=== PATIENT | male | born 1975 | race Two or more races ===

== ENCOUNTER 2024-09-09 05:26 | Emergency (ER) | payer MEDICAID, SELFPAY ==
[2024-09-09 05:28] VITALS: BMI 34.0
[2024-09-09 05:30] VITALS: BP 128/88; PULSE 68; RESP 18; TEMP 36.4; O2SAT 98
--- NOTE | 2024-09-09 05:30 | PC.NURSE ---
MAIN ED ROOM REQUESTED AT THIS TIME.
--- NOTE | 2024-09-09 05:30 | EKG_ITS ---
[facility] Test Date: 2024-09-09 Pat Name: JACK DREW Department: Room: - Gender: Male Health And Safety Specialist: : 1975 Requested By: ED Temporary Provider Order Number: [id number] Reading MD: ED Temporary Provider Measurements Intervals [place] Rate: 67 P: 54 IL: 152 QRS: 25 QRSD: 98 T: 45 QT: 408 QTc: 431 Interpretive Statements SINUS RHYTHM POSSIBLE RIGHT VENTRICULAR CONDUCTION DELAY [RSR (QR) IN V1/V2] PROBABLE SEPTAL MYOCARDIAL INFARCTION , POSSIBLY ACUTE [35 ms Q WAVE IN V1/V2] ST ELEVATION, CONSIDER ANTERIOR INJURY [MARKED ST ELEVATION W/O NORMALLY INFLECTED T-WAVE IN V2-V5] ACUTE OK No previous ECG available for comparison /store/S0/[id number]/ecg/[id number].pdf
--- NOTE | 2024-09-09 05:44 | XR_ITS ---
Examination: PA chest single view Technique: Upright PA chest single view Exam date and time: September 09, 2024 0602 hrs. Indications: Chest pain today Findings: Normal heart size Lungs are clear. Osseous structures are intact Impression: No active disease
--- NOTE | 2024-09-09 05:45 | PD.EDRME ---
Rapid Medical Screening Exam [facility] Arrival date/time: 09/09/24 05:26 48M with history of HTN and HLD presents to ED with 2 hours of CP and sweating. Patient denies URI symptoms. Patient took Viagra 6 hours ago. Chief Complaint: Chest Pain Vital signs: Vital Signs Temperature 97.5 F 09/09/24 05:30 Pulse Rate 68 09/09/24 05:30 Respiratory Rate 18 09/09/24 05:30 Blood Pressure 128/88 H 09/09/24 05:30 Pulse Oximetry (%) 98 09/09/24 05:30 Oxygen Delivery Method Room Air 09/09/24 05:30
[2024-09-09] MEDS: Aspirin 325 MG TABLET PO (06:00)
[2024-09-09 06:09] VITALS: PULSE 58
[2024-09-09 06:11] VITALS: BP 114/91; PULSE 62; RESP 17; O2SAT 99
[2024-09-09 06:24] LABS: Basophils # (Auto) 0.1 Thou/mm3 (0.0-0.2); Basophils % (Auto) 0 % (0-2.5); Eosinophils # (Auto) 0.7 Thou/mm3 (0.0-0.5); Eosinophils % (Auto) 5 % (0-10); Hemoglobin 15.6 g/dL (13.5-16.0); Immature Granulocytes % (Auto) 1 % (0-0); Immature Granulocytes Auto 0.08 Thou/mm3 (0.00-0.00); Lymphocytes # (Auto) 3.8 Thou/mm3 (1.0-4.8); Lymphocytes % (Auto) 25 % (10-50); Mean Corpuscular HGB Conc 33.2 g/dl (31.0-37.0); Mean Corpuscular Hemoglobin 29.7 pg (25.0-35.0); Mean Corpuscular Volume 90 fL (80-100); Monocytes # (Auto) 1.5 Thou/mm3 (0.0-0.8); Monocytes % (Auto) 10 % (0-12); Neutrophils # (Auto) 8.9 Thou/mm3 (1.8-7.7); Neutrophils % (Auto) 59 % (37-80); Nucleated Red Blood Cell % 0 /100 WBC (0); Platelet Count 304 Thou/mm3 (140-440); RDW Standard Deviation 42.2 fL (35.1-43.9); Red Blood Count 5.25 Miln/mm3 (4.50-5.90)
--- NOTE | 2024-09-09 06:30 | PC.NURSE ---
PT RECEIVED FROM ER LOBBY, PT CAME TO ER FROM HOME FOR C/O CP AND WAS SWEATING, PT ADMITTED THAT HE TOOK VIAGRA 6 HOURS AGO BEFORE HE CAME TO ER.
[2024-09-09 06:38] LABS: Partial Thromboplastin Time 23.6 Seconds (22.0-36.0); Prothrombin Time 10.7 Seconds (9.0-12.2)
--- NOTE | 2024-09-09 06:39 | EDNOTE_ITS ---
ED Chest Pain RME/HPI General Chief Complaint: Chest Pain Stated Complaint: CHEST PAIN AND SWEATING Time Seen by Provider: 09/09/24 06:20 Arrival date/time: 09/09/24 05:26 RME / HPI RME / HPI narrative: 09/09/24 05:26 48M with history of HTN and HLD presents to ED with 2 hours of CP and sweating. Patient denies URI symptoms. Patient took Viagra [address] ASCENCIO MAIN ED EVALUATION: 48 year old male with a past medical history of hypertension, diabetes, and hyperlipidemia presents to the ED for evaluation of chest pain that awoke him from sleep at 04:00 AM today. He describes the pain as an aching sensation localized to the center of his chest, without radiation, and rates it 8/10 in severity. The pain was associated with diaphoresis this morning but was not accompanied by nausea, vomiting, abdominal pain, cough, or shortness of breath. The patient notes a similar episode of chest pain three days ago while working, and a second, less severe episode last night while at home. He denies any prev ious history of chest pain prior to these episodes. He has no known history of cardiac disease. Denies consulting with PCP regarding pain. Related Data Allergies Allergy/AdvReac Type Severity Reaction Status Date / Time Penicillins Allergy Unknown Verified 09/09/24 05:27 Review of Systems Review of Systems Narrative Review of Systems: Gen: No fever, no chills, no weight loss, +diaphoresis EYES: No discharge, no visual changes, no pain HEENT: No ear pain, no congestion, no sore throat PULM: no shortness of breath, no cough, no congestion CV: + chest pain, no palpitations, no chest tightness GI: No nausea, no vomiting, no diarrhea, no pain, no constipation : No frequency, no urgency,? no dysuria Musc/skel: No joint pain, no back pain Skin: No rash, no ecchymosis, no lesions Neuro: No weakness, no headache Past Medical History Past Medical History CARDIAC: Positive Cardiac Disorders and Hypertension; Negative Congestive Heart Failure RESPIRATORY: Negative Chronic Obstructive Pulmonary Disease (COPD) GENITOURINARY: Negative Renal Disease ENDOCRINE: Positive Endocrine Disorders and Diabetes Mellitus Type 2; Negative Diabetes Mellitus Type 1 Social History SMOKING STATUS: Never smoker ED Exam Narrative Physical exam: GENERAL APPEARANCE: AxOx4, no obvious distress, nontoxic appearing HEENT: NC, AT. MMM. EOMI, clear conjunctiva, oropharynx clear. NECK: Supple without lymphadenopathy. No stiffness or restricted ROM. HEART: Normal rate and regular rhythm, normal S1/S1, no m/r/g LUNGS: CTAB, moving air well. No crackles or wheezes are heard. ABDOMEN: Soft, nontender, nondistended with good bowel sounds heard. BACK: No midline C/T/L spine pain or deformity, No CVAT, no obvious deformity. EXTREMITIES: Without cyanosis, clubbing or edema. MUSCULOSKELETAL: FROM of all major joints, no chest tenderness, no reproducible chest tenderness NEUROLOGICAL: Grossly nonfocal. Alert and oriented, moving all 4 extremities. CN not formally tested but appear grossly intact. Skin: Warm and dry without any rash. Course Course Course Narrative: 0642: Heart alert called overhead Quality Measures none Orders Category Date Time Status Heel Seam Rubber Q4H START 00 Care 09/09/24 05:45 Active EKG (ED ONLY) *Do not use* NOW Care 09/09/24 05:30 Completed EKG (ED ONLY) *Do not use* NOW Care 09/09/24 06:33 Completed Fingerstick [Bedside Blood Glucose] NOW Care 09/09/24 06:10 Active Insert IV NOW Care 09/09/24 05:45 Active Notify provider NOW Care 09/09/24 06:50 Active Consult to Cardiology Stat Cons 09/09/24 06:53 Ordered Referral - Apparatus Operator Stat Cons 09/09/24 06:53 Active EKG (ED Only) Stat Exams 09/09/24 05:30 Draft EKG (ED Only) Stat Exams 09/09/24 06:33 Ordered XR chest 1V portable Stat Exams 09/09/24 05:44 Taken B-Type Natriuretic Peptide Stat Lab 09/09/24 06:07 Completed CBC Stat Lab 09/09/24 06:07 Completed Comprehensive Metabolic Panel Stat Lab 09/09/24 06:07 Completed Drug Screen,Urine Stat Lab 09/09/24 05:44 Ordered Lipase Stat Lab 09/09/24 06:07 Completed Magnesium Stat Lab 09/09/24 06:07 Completed Partial Thromboplastin Time AM DRAW Lab 09/11/24 05:00 Ordered Partial Thromboplastin Time Stat Lab 09/09/24 06:07 Completed Prothrombin Time with INR AM DRAW Lab 09/11/24 05:00 Ordered Prothrombin Time with INR Stat Lab 09/09/24 06:07 Completed Troponin I Stat Lab 09/09/24 06:07 Completed Aspirin Med 09/09/24 05:44 Discontinued 325 mg PO X1 ONE Heparin Inj Med 09/09/24 06:50 Discontinued 4,000 unit IV X1 ONE Lidocaine 2% Viscous [Xylocaine 2% Viscous] Med 09/09/24 06:33 Discontinued 10 ml PO X1 ONE Morphine Inj Med 09/09/24 06:58 Discontinued 4 mg IVP X1 ONE mg Hyd/Al Hyd/Florin Susp [Maalox Susp] Med 09/09/24 06:33 Discontinued 30 ml PO X1 ONE Vital Signs Vital signs: Vital Signs Temperature 97.5 F 09/09/24 05:30 Pulse Rate 68 09/09/24 05:30 Respiratory Rate 18 09/09/24 05:30 Blood Pressure 128/88 H 09/09/24 05:30 Pulse Oximetry (%) 98 09/09/24 05:30 Oxygen Delivery Method Room Air 09/09/24 05:30 Pulse ox is 98% on room air which is adequate. Chest Pain MDM Narrative MDM Narrative:: Veronica Marcus am scribing for and in the presence of Dr. Ascencio. Patient data External records reviewed:: [facility] previous records (Per EMR, no previous ED visits for review ) Clinical information provided by:: patient Social determinants that could affect healthcare access:: none Patient has the following chronic illnesses:: HTN, DM, HLD How is presenting disease/condition affected by chronic disease/condition?: exacerbated by Evaluation data The following diagnostics were reviewed and interpreted by me:: lab results, radiology exam(s) and EKG tracing(s) (EKG #1 @ 05:30 shows sinus rhythm, rate 64, J-point elevation in anterior leads, early repolarization. EKG #2 @ 06:37 shows sinus rhythm, rate 67, ST elevation in V2 and V3, T-wave elevation. ) Lab and/or radiology exams considered but not ordered:: None Interpretation Summary: CXR my interpretation: No widened mediastinum, no cardiomegaly, no cardiopulmonary findings Medications / Prescriptions Medications or Prescriptions considered but not ordered:: None Medication administrations:: Medication Administration History Discontinued Medications Al Hydrox/Mg Hydrox/Simethicone (Mg Hyd/Al Hyd/Florin (Maalox Reg) Susp 30 Ml Udc) 30 ml PO X1 ONE Stop: 09/09/24 06:34 Last Admin: 09/09/24 06:40 Dose: 30 ml Documented By: CVL Aspirin (Aspirin 325 Mg Tablet) 325 mg PO X1 ONE Stop: 09/09/24 05:45 Last Admin: 09/09/24 06:00 Dose: 325 mg Documented By: MC Heparin Sodium (Porcine) (Heparin Sod Inj 5000 Unit/Ml Vial) 4,000 unit IV X1 ONE; Protocol Stop: 09/09/24 06:51 Last Admin: 09/09/24 07:00 Dose: 4,000 unit Documented By: CVL Co-signed By: EF Lidocaine HCl (Lidocaine Viscous 2% 15 Ml Udc) 10 ml PO X1 ONE Stop: 09/09/24 06:34 Last Admin: 09/09/24 06:41 Dose: 10 ml Documented By: CVL Morphine Sulfate (Morphine Sulf Inj 10 Mg/Ml Vial) 4 mg IVP X1 ONE Stop: 09/09/24 06:59 Last Admin: 09/09/24 07:05 Dose: 4 mg Documented By: CVL See above Consultations Consultation(s) initiated? (list below): Yes Consultation #1 (Physician, Specialty, Details): I spoke with hook and eye machine operator Dr. Marques. Discussed patients PMHx, HPI, ED course, labs, and EKG results. We reviewed the EKG's and recommends transferring to [facility]. Time: 06:42 Consultation #2 (Physician, Specialty, Details): I spoke with hook and eye machine operator Dr. Scott at [facility]. Discussed patients PMHx, HPI, ED course, labs, EKG and radiology results. He accepts the patient for transfer. ED to ED transfer. Time: 06:58 Diagnosis Chest Pain Differential Diagnosis: pneumothorax, atypical chest pain, st elevation myocardial infarction, costochondritis, chest pain and biliary colic Most likely diagnosis given after review of the tests above:: STEMI Admission Indicated Admission indicated?: not indicated Admission Request Was there a request for admission?: No Disposition Plan Disposition Plan: Transfer Critical Care Time Critical Care Time Critical Care Time: Yes Total Critical Care Time (min.): 35 Attestation: The high probability of sudden, clinically significant deterioration in the patient's condition required the highest level of my preparedness to intervene urgently. The services I provided to this patient were to treat and/or prevent clinically significant deterioration. Services included the following: chart data review, reviewing nursing notes and/or old charts, documentation time, software sales consultant collaboration regarding findings and treatment options, medication orders and management, direct patient care, vital sign assessments and ordering, inte rpreting and reviewing diagnostic studies and lab tests. Aggregate critical care time includes only time during which I was engaged in work directly related to the patient's care, as described above, whether at bedside or elsewhere in the Emergency Department. It did not include time spent performing other reported procedures or the services of residents, students, nurses or physician assistants. Discharge Plan Plan Patient Disposition: [facility] Pt Being Transferred to: [facility] Service Needed for Transfer: Cardiology Problem List Clinical Impression: ST elevation (STEMI) myocardial infarction Patient/Caregiver Discharge Instructions Print Language: Maltese Stand Alone Forms: [employer] Award Info., Patient Portal Info Letter
[2024-09-09] MEDS: MG HYD/AL HYD/SIME (Maalox Reg) SUSP 30 ML UDC PO (06:40)
[2024-09-09 06:41] LABS: B-Type Natriuretic Peptide < 20 pg/mL (0-100)
[2024-09-09] MEDS: LIDOCAINE VISCOUS 2% 15 ML UDC 10 ML PO (06:41)
[2024-09-09 06:43] LABS: Alanine Aminotransferase 23 U/L (10-49); Albumin, Serum 4.4 gm/dL (3.5-5.0); Albumin/Globulin Ratio 1.6 (1.2-2.2); Alkaline Phosphatase 100 U/L (46-116); Anion Gap 8 (7-16); Aspartate Amino Transferase 15 U/L (0-34); BUN/Creatinine Ratio 15 Ratio (12-20); Bilirubin,Total 1.3 mg/dL (0.3-1.2); Blood Urea Nitrogen 18 mg/dL (9-23); Calcium 9.5 mg/dL (8.3-10.6); Calcium (Corrected) 9.5 mg/dL (8.5-10.1); Chloride 105 mMol/L (98-107); Creatinine (Component) 1.2 mg/dL (0.6-1.3); Estimated Creatinine Clearance 88.9 mL/min (>60); Globulin 2.8 gm/dL (2.3-3.5); Glucose 226 mg/dL (74-106); Lipase 35 U/L (12-53); Osmolality,Calculated 288 (275-295); Potassium 3.9 mMol/L (3.4-5.1); Sodium 140 mMol/L (136-145); Total Protein 7.2 gm/dL (5.7-8.2); Troponin I < 0.020 ng/mL (0.0-0.045); eGFR > 60 See Note
--- NOTE | 2024-09-09 06:51 | PC.NURSE ---
1734 [facility] FA[facility]ED.
[2024-09-09 06:54] VITALS: BP 145/108; PULSE 66; RESP 19; TEMP 37.1; O2SAT 99
[2024-09-09] MEDS: HEPARIN SOD INJ 5000 UNIT/ML VIAL 4000 UNIT IV (07:00)
[2024-09-09] MEDS: MORPHINE SULF INJ 10 MG/ML VIAL 4 MG IVP (07:05)
--- NOTE | 2024-09-09 07:13 | PC.NURSE ---
0657 PT ACCEPTED TO [facility] BY DR FARAH AT THIS TIME. STAT TRANSFER M[facility]RISON NOTIFIED.
--- NOTE | 2024-09-09 07:13 | PC.NURSE ---
REPORT GIVEN TO JOSEPHINE RIVERO AT [facility]
== END 2024-09-09 07:15 | disposition short-term general hospital (02) ==
PROVIDERS: Physician Assistant; Emergency Provider Emergency Medicine; PCP Physician Assistant
DX: I21.3 ST elevation (STEMI) myocardial infarction of unspecified site (principal); I10 Essential (primary) hypertension; Z75.1 Person awaiting admission to adequate facility elsewhere
CPT/HCPCS: 36415; 71045; 80053; 80307; 83690; 83735; 83880; 84484; 85025; 85610; 85730; 93005; 96374; 99291; J1643; J2270; J3490; A9270